=== PATIENT | female | born 1960 | race Caucasian/White ===

== ENCOUNTER 2017-01-23 02:49 | Emergency (ER) | payer OTHER ==
[2017-01-23 03:25] LABS: BASO % 0.3 % (0.1-1.2); EOS # 0.1 10_X3_uL (0.0-0.4); EOS % 1.5 % (0.7-5.8); GRAN % 54.2 % (34.0-71.1); HEMATOCRIT 41.2 % (34-45); HEMOGLOBIN 14.5 g/dL (11.2-15.7); LYMPH # 2.7 10_X3_uL (1.2-3.7); LYMPH % 36.5 % (19.3-51.7); MEAN CORPUSCULAR HEMOGLOBIN 30.3 pg (27.0-33.0); MEAN CORPUSCULAR HGB CONC 35.2 g/dL (32.0-36.0); MEAN CORPUSCULAR VOLUME 86.2 fL (79-95); MEAN PLATELET VOLUME 12.2 fl (7.5-11.5); MONO # 0.6 10_X3_uL (0.2-0.9); MONO % 7.5 % (4.7-12.5); PLATELET COUNT 102 x10_3/uL (182-369); RED BLOOD COUNT 4.78 x10_6/uL (3.9-5.2); RED CELL DISTRIBUTION WIDTH 13.1 % (11.7-14.4); WHITE BLOOD COUNT 7.5 x10_3/uL (4.0-10.0)
[2017-01-23 03:37] LABS: ALBUMIN 4.1 gm/dL (3.4-5.0); ALKALINE PHOSPHATASE 71 U/L (50-136); ALT/SGPT 70 U/L (3.5-33.9); AMYLASE 49 U/L (15.62-74.58); AST/SGOT 57 U/L (7.04-26.96); BILIRUBIN,TOTAL 0.26 mg/dL (0.0-1.0); BLOOD UREA NITROGEN 9 mg/dL (7-18); CALCIUM 9.7 mg/dL (8.7-10.7); CARBON DIOXIDE 25 mmol/L (21-32); CREATININE 0.6 mg/dL (0.6-1.3); GLUCOSE,RANDOM 114 mg/dL (70-99); LIPASE 53 U/L (6.75-60.75); SODIUM 140 mmol/L (136-145); TOTAL PROTEIN 6.8 gm/dL (6.4-8.2)
== END 2017-01-23 03:50 | disposition home or self-care (01) ==
LOC: ER 02:49
PROVIDERS: General Practice
DX: D69.6 Thrombocytopenia, unspecified (principal); R19.7 Diarrhea, unspecified; R74.8 Abnormal levels of other serum enzymes; G89.29 Other chronic pain; R10.11 Right upper quadrant pain; E66.01 Morbid (severe) obesity due to excess calories; G62.9 Polyneuropathy, unspecified; I10 Essential (primary) hypertension; E11.9 Type 2 diabetes mellitus without complications; K21.9 Gastro-esophageal reflux disease without esophagitis; M54.9 Dorsalgia, unspecified; J44.9 Chronic obstructive pulmonary disease, unspecified; F17.210 Nicotine dependence, cigarettes, uncomplicated; Z79.899 Other long term (current) drug therapy; Z79.891 Long term (current) use of opiate analgesic
CPT/HCPCS: 36415; 80053; 82150; 83690; 85025; 99283